=== PATIENT | male | born 1950 | race Two or more races ===

== ENCOUNTER 2020-09-06 13:08 | Inpatient (IN) | payer MEDICARE, MEDICAID ==
[~2020-09-06] VITALS: Ht 172.7 cm; Wt 89.5 kg
[2020-09-06 14:22] LABS: Basophils # (auto) 0.1 10 ^3/uL (0-0.2); Basophils % (auto) 0.5 % (0.0-2.0); Eosinophils # (auto) 0 10 ^3/uL (0-0.8); Eosinophils % (auto) 0.2 % (0.0-7.0); Hematocrit 40.4 % (41.0-53.0); Hemoglobin 14.2 g/dL (13.5-17.5); Lymphocytes # (auto) 1.5 10 ^3/uL (0.4-5.4); Lymphocytes % (auto) 10.6 % (10.0-50.0); Mean Corpuscular Hemoglobin 33.2 pg (28.0-32.0); Mean Corpuscular Hgb Conc. 35.2 g/dL (32.0-36.0); Mean Corpuscular Volume 94.3 fL (80.0-100.0); Monocytes % (auto) 7.3 % (0.0-12.0); Neutrophils # (auto) 11.1 10 ^3/uL (1.6-8.6); Neutrophils % (auto) 81.4 % (37.0-80.0); Nucleated Red Blood Cells % 0.1 %; Platelet Count (auto) 238 10^3/uL (140-450); Red Blood Cells 4.28 10^6/uL (4.5-5.90); Red Cell Distribution Width 12.9 % (11.8-14.3); White Blood Cell 13.7 10^3/uL (4.4-10.8)
[2020-09-06 14:36] LABS: Albumin 3.8 g/dL (3.4-5.0); Calcium 8.5 mg/dL (8.5-10.1); Magnesium 2.1 mg/dL (1.6-2.6); Potassium 3.6 mmol/L (3.5-5.1)
[2020-09-06 14:39] LABS: BUN/Creatinine Ratio 11.3; Bilirubin, Total 1.2 mg/dL (0.2-1.0); Total Protein 8.3 g/dL (6.4-8.2)
[2020-09-06 14:44] LABS: Urine Bacteria FEW /hpf (None Seen); Urine Blood 2+ /uL (Negative); Urine Specific Gravity 1.008 (1.001-1.035); Urine WBC 101 /hpf (0 - 3)
[2020-09-06] MEDS ORDERED: cefTRIAXone 1GM/50ML D5W 50 ML IV ONE (15:45)
[2020-09-06] MEDS ORDERED: ACETAMINOPHEN 325 MG TAB PO ONE (15:45)
[2020-09-06] MEDS ORDERED: SODIUM CHLORIDE 0.9% 1,000 ML IVB ONE (15:45)
[2020-09-06] MEDS ORDERED: ONDANSETRON HCL 4 MG/2 ML VIAL IV PRN (18:30)
[2020-09-06] MEDS ORDERED: MORPHINE SULF INJ 2 MG/ML SYRINGE 1ML IV PRN ×2 (18:30)
[2020-09-06] MEDS ORDERED: NITROGLYCERIN 0.4 MG SL TAB SL PRN (18:30)
[2020-09-06] MEDS: SODIUM CHLORIDE 0.9% 1,000 ML IV SCH (19:04)
[2020-09-06 19:36] LABS: Cholesterol 164 mg/dL (< 200)
[2020-09-06 19:39] LABS: HDL Cholesterol 41 mg/dL (40-59); LDL Cholesterol 111 mg/dL (< 100); Triglycerides 116 mg/dL (< 150)
[2020-09-06] MEDS: DOCUSATE SOD 100 MG CAP PO SCH (21:00)
[2020-09-07] MEDS: ACETAMINOPHEN 500 MG TAB PO PRN ×2 (04:09→21:03)
[2020-09-07] MEDS: SODIUM CHLORIDE 0.9% 1,000 ML IV SCH ×3 (04:09→16:44)
[2020-09-07 05:00] VITALS: BP 137/75
[2020-09-07 08:05] LABS: Basophils # (auto) 0.1 10 ^3/uL (0-0.2); Basophils % (auto) 0.4 % (0.0-2.0); Eosinophils # (auto) 0 10 ^3/uL (0-0.8); Hematocrit 36.4 % (41.0-53.0); Hemoglobin 12.6 g/dL (13.5-17.5); Lymphocytes # (auto) 1.4 10 ^3/uL (0.4-5.4); Lymphocytes % (auto) 9.3 % (10.0-50.0); Mean Corpuscular Hemoglobin 32.9 pg (28.0-32.0); Mean Corpuscular Hgb Conc. 34.7 g/dL (32.0-36.0); Mean Corpuscular Volume 94.6 fL (80.0-100.0); Monocytes % (auto) 6.4 % (0.0-12.0); Neutrophils # (auto) 12.8 10 ^3/uL (1.6-8.6); Neutrophils % (auto) 83.9 % (37.0-80.0); Platelet Count (auto) 198 10^3/uL (140-450); Red Blood Cells 3.85 10^6/uL (4.5-5.90); White Blood Cell 15.3 10^3/uL (4.4-10.8)
[2020-09-07 08:16] LABS: BUN/Creatinine Ratio 9.5; Calcium 8.1 mg/dL (8.5-10.1); Potassium 3.5 mmol/L (3.5-5.1)
[2020-09-07 08:51] VITALS: BP 101/55
[2020-09-07] MEDS: DOCUSATE SOD 100 MG CAP PO SCH ×2 (10:30→21:01)
[2020-09-07] MEDS: cefTRIAXone 1GM/50ML D5W 50 ML IV SCH (10:30)
[2020-09-07] MEDS: FAMOTIDINE 20 MG TAB PO SCH (10:31)
[2020-09-07 13:00] VITALS: BP 108/60
[2020-09-07] MEDS: HYDROcodone-ACET 5/325MG TAB PO PRN (16:44)
[2020-09-07] MEDS: TAMSULOSIN HYDROCHLORIDE 0.4 MG CAP PO SCH (17:33)
[2020-09-07] MEDS: PHENAZOPYRIDINE HCL 100 MG TAB PO SCH (21:02)
[2020-09-07 22:41] VITALS: BP 117/73
[2020-09-07] MEDS ORDERED: INFLUENZA QUAD 2020-2021 0.5 ML SYRG IM ONE (23:45)
[2020-09-08] MEDS: HYDROcodone-ACET 5/325MG TAB PO PRN ×2 (03:01→17:58)
[2020-09-08] MEDS: SODIUM CHLORIDE 0.9% 1,000 ML IV SCH ×2 (04:16→10:30)
[2020-09-08 05:30] VITALS: BP 102/61
[2020-09-08 06:52] LABS: Basophils # (auto) 0 10 ^3/uL (0-0.2); Basophils % (auto) 0.2 % (0.0-2.0); Eosinophils # (auto) 0.1 10 ^3/uL (0-0.8); Eosinophils % (auto) 0.8 % (0.0-7.0); Hematocrit 36.3 % (41.0-53.0); Hemoglobin 12.5 g/dL (13.5-17.5); Lymphocytes # (auto) 1.4 10 ^3/uL (0.4-5.4); Lymphocytes % (auto) 9.3 % (10.0-50.0); Mean Corpuscular Hgb Conc. 34.5 g/dL (32.0-36.0); Mean Corpuscular Volume 95.7 fL (80.0-100.0); Monocytes % (auto) 7.2 % (0.0-12.0); Neutrophils % (auto) 82.5 % (37.0-80.0); Platelet Count (auto) 192 10^3/uL (140-450); Red Blood Cells 3.79 10^6/uL (4.5-5.90); Red Cell Distribution Width 12.9 % (11.8-14.3); White Blood Cell 14.5 10^3/uL (4.4-10.8)
[2020-09-08 07:01] LABS: Calcium 8.6 mg/dL (8.5-10.1); Potassium 3.6 mmol/L (3.5-5.1)
[2020-09-08 07:08] LABS: BUN/Creatinine Ratio 12.6
[2020-09-08 08:00] VITALS: BP 117/74
[2020-09-08 08:24] VITALS: BP 117/74
[2020-09-08] MEDS: FAMOTIDINE 20 MG TAB PO SCH (10:28)
[2020-09-08] MEDS: DOCUSATE SOD 100 MG CAP PO SCH ×2 (10:28→22:22)
[2020-09-08] MEDS: PHENAZOPYRIDINE HCL 100 MG TAB PO SCH ×2 (10:28→22:22)
[2020-09-08] MEDS: cefTRIAXone 1GM/50ML D5W 50 ML IV SCH (10:28)
[2020-09-08 13:43] VITALS: BP 115/66
[2020-09-08 16:41] VITALS: BP 132/81
[2020-09-08] MEDS: TAMSULOSIN HYDROCHLORIDE 0.4 MG CAP PO SCH (17:57)
[2020-09-08 22:00] VITALS: BP 126/73
[2020-09-08] MEDS: CIPROFLOXACIN HCL 500 MG TAB PO SCH (22:23)
[2020-09-09] MEDS: HYDROcodone-ACET 5/325MG TAB PO PRN ×3 (00:17→16:38)
[2020-09-09 04:47] VITALS: BP 114/77
[2020-09-09 05:51] LABS: Basophils # (auto) 0 10 ^3/uL (0-0.2); Basophils % (auto) 0.6 % (0.0-2.0); Eosinophils # (auto) 0.4 10 ^3/uL (0-0.8); Eosinophils % (auto) 4.6 % (0.0-7.0); Hematocrit 35.6 % (41.0-53.0); Hemoglobin 12.6 g/dL (13.5-17.5); Lymphocytes # (auto) 1.6 10 ^3/uL (0.4-5.4); Lymphocytes % (auto) 18.3 % (10.0-50.0); Mean Corpuscular Hemoglobin 33.7 pg (28.0-32.0); Mean Corpuscular Hgb Conc. 35.4 g/dL (32.0-36.0); Mean Corpuscular Volume 95.2 fL (80.0-100.0); Monocytes # (auto) 0.7 10 ^3/uL (0-1.3); Monocytes % (auto) 8.1 % (0.0-12.0); Neutrophils # (auto) 5.8 10 ^3/uL (1.6-8.6); Neutrophils % (auto) 68.4 % (37.0-80.0); Platelet Count (auto) 205 10^3/uL (140-450); Red Blood Cells 3.74 10^6/uL (4.5-5.90); Red Cell Distribution Width 13.1 % (11.8-14.3); White Blood Cell 8.5 10^3/uL (4.4-10.8)
[2020-09-09 06:11] LABS: Potassium 3.8 mmol/L (3.5-5.1)
[2020-09-09 06:16] LABS: BUN/Creatinine Ratio 14.1; Calcium 8.5 mg/dL (8.5-10.1)
[2020-09-09 08:15] VITALS: BP 117/81
[2020-09-09 09:00] VITALS: BP 117/81
[2020-09-09] MEDS: FAMOTIDINE 20 MG TAB PO SCH (09:37)
[2020-09-09] MEDS: CIPROFLOXACIN HCL 500 MG TAB PO SCH (09:37)
[2020-09-09] MEDS: DOCUSATE SOD 100 MG CAP PO SCH (09:37)
[2020-09-09] MEDS: PHENAZOPYRIDINE HCL 100 MG TAB PO SCH (09:38)
[2020-09-09] MEDS ORDERED: TAM04C PO (11:42)
[2020-09-09] MEDS ORDERED: CIPR-173 PO (11:42)
[2020-09-09 13:00] VITALS: BP 107/68
[2020-09-09 13:26] VITALS: BP 107/68
[2020-09-09 17:00] VITALS: BP 131/76
[2020-09-09] MEDS: TAMSULOSIN HYDROCHLORIDE 0.4 MG CAP PO SCH (18:30)
== END 2020-09-09 18:50 | disposition home or self-care (01) | DRG 872 ==
LOC: ER 13:08 → TELE 18:26 → TELE-CENTR 09-07 03:50
PROVIDERS: ADMIT Nurse Practitioner Acute Care; ATTEND Internal Medicine Pulmonary Disease
DX: A41.9 Sepsis, unspecified organism (principal); N40.1 Benign prostatic hyperplasia with lower urinary tract symptoms; R35.0 Frequency of micturition; K57.30 Diverticulosis of large intestine without perforation or abscess without bleeding; K42.9 Umbilical hernia without obstruction or gangrene; K59.00 Constipation, unspecified; Z20.822 Contact with and (suspected) exposure to COVID-19; N30.91 Cystitis, unspecified with hematuria; B96.1 Klebsiella pneumoniae [K. pneumoniae] as the cause of diseases classified elsewhere
CPT/HCPCS: 36415; 74176; 80048; 80053; 80061; 81001; 83605; 83735; 84154; 84443; 85025; 87040; 87086; 87088; 87186; 87426; 96365; G0378; J0696; J2405